=== PATIENT | male | born 1990 | race Caucasian/White ===

== ENCOUNTER 2023-05-24 18:10 | Emergency (ER) | payer OTHER ==
[~2023-05-24] VITALS: Ht 182.9 cm; Wt 68.0 kg
[2023-05-24 18:15] VITALS: O2SAT 100
[2023-05-24] MEDS ORDERED: SODIUM CHLORIDE 0.9% 1000ML BAG (SEPSIS BOLUS) IV ONE (18:30)
[2023-05-24 18:59] LABS: HEMATOCRIT. 43.8 % (42.0-52.0); HEMOGLOBIN. 14.7 g/dL (14.0-18.0); MEAN CORPUSCULAR HEMOGLOBIN 32.2 pg (28.0-32.0); MEAN CORPUSCULAR HGB CONC 33.6 g/dL (31.0-37.0); MEAN CORPUSCULAR VOLUME 95.9 fL (80.0-94.0); PLATELET 199 x1000/uL (130-400); RED BLOOD CELL COUNT 4.56 mill/uL (4.7-6.1); RED CELL DISTRIBUTION WIDTH 13.2 % (11.6-14.6); WHITE BLOOD COUNT 16.6 x1000/uL (4.5-11.0)
[2023-05-24 19:01] LABS: DIFFERENTIAL COMMENT 1
[2023-05-24 19:06] LABS: CHLORIDE 102 mEq/L (98-107); INDEX HEMOLYSI 1 (1-3); INDEX ICTERIC 1 (1-4); INDEX LIPEMIC 1 (1-3); POTASSIUM 3.2 mEq/L (3.5-5.1); SODIUM 133 mEq/L (136-145)
[2023-05-24 19:16] LABS: ALANINE AMINOTRANSFERASE 33 IU/L (13-61); ALBUMIN 3.8 g/dL (3.4-5.0); ASPARTATE AMINOTRANSFERASE 48 IU/L (15-37); BILIRUBIN TOTAL 0.7 mg/dL (0.1-1.0); CARBON DIOXIDE 19 mEq/L (21-32); CREATININE 0.9 mg/dL (0.6-1.3); ETHANOL BLOOD 109 mg/dL (-10); GLUCOSE 169 mg/dL (70-105); PROTEIN TOTAL 8.3 g/dL (6.0-8.3); TROPONIN I HIGH SENSITIVITY 4 ng/L (<78); UREA NITROGEN BLOOD 8 mg/dL (7-21)
[2023-05-24 19:28] LABS: PLATELET ESTIMATE NORMAL
[2023-05-24 19:29] LABS: LACTIC ACID 3.1 mmol/L (0.4-2.0)
[2023-05-24] MEDS ORDERED: VANCOMYCIN 1G PREMIX 200 ML IV ONE (19:45)
[2023-05-24] MEDS ORDERED: PIPERACILLIN/TAZ 3.375G PREMIX 50 ML IV ONE (19:45)
[2023-05-24] MEDS ORDERED: POTASSIUM CHLORIDE 20MEQ TABLET SR PO ONE (21:45)
[2023-05-24] MEDS ORDERED: HYDROCODONE/ACETAMINOPHEN 5/325MG TABLET PO ONE (22:00)
[2023-05-25 01:29] VITALS: BP 130/79; PULSE 90; RESP 20; TEMP 99.8
== END 2023-05-25 05:13 | disposition short-term general hospital (02) ==
LOC: ER 18:10
DX: A41.9 Sepsis, unspecified organism (principal); E87.6 Hypokalemia
CPT/HCPCS: 80053; 80320; 83605; 85025; 87040; 84484; 36415; 71045; 93005; 96367; 96365; 99291; J2543; J3370; J7030; Z7610 ×2; G0480